=== PATIENT | female | born 1975 | race Caucasian/White ===

== ENCOUNTER 2017-01-01 10:51 | Emergency (ER) | payer MEDICAID ==
[2017-01-01] MEDS ORDERED: NORMAL SALINE 1000 ML 1,000 ML IV PRN ×2 (11:04→12:21)
[2017-01-01] MEDS ORDERED: ACETAMINOPHEN 325 MG TABLET PO ONE ×2 (11:07→14:32)
[2017-01-01] MEDS ORDERED: ONDANSETRON HCL INJ/PF 4 MG/2 ML SDV IV ONE (11:16)
[2017-01-01] MEDS ORDERED: KETOROLAC TROMETHAMINE INJ/PF 30 MG/1 ML SDV IV ONE (11:17)
--- NOTE | 2017-01-01 11:19 | ER Document Report ---
ED General - General Chief Complaint: Nausea/Vomiting Stated Complaint: NAUSEA,VOMITING,LOW BACK PAIN Mode of Arrival: Ambulatory Information source: Patient Notes: 41-year-old female presents with complaints of left flank pain and fever bodyaches nausea vomiting. Patient notes symptoms initially started 5 days ago with UTI symptoms burning on urination patient took Azo with no improvement of any symptoms. Notes she became febrile today TRAVEL OUTSIDE OF THE [place] IN LAST 30 DAYS: No - HPI Onset: Last week Onset/Duration: Persistent Quality of pain: Achy Severity: Mild Pain Level: 1 Associated symptoms: Fever, Nausea, Vomiting Exacerbated by: Other - Urination Relieved by: Denies Similar symptoms previously: No Recently seen / treated by doctor: No - Related Data Allergies/Adverse Reactions: No Known Allergies Allergy (Verified 01/01/17 12:05) Past Medical History - Social History Smoking Status: Current Every Day Smoker Cigarette use (# per day): Yes Chew tobacco use (# tins/day): No Smoking Education Provided: No Family History: Reviewed & Not Pertinent Patient has suicidal ideation: No Patient has homicidal ideation: No Renal/ Medical History: Denies: Hx Peritoneal Dialysis Review of Systems - Review of Systems Notes: REVIEW OF SYSTEMS: CONSTITUTIONAL : Admits to fever EENT: Denies eye, ear, throat, or mouth pain or symptoms. Denies nasal or sinus congestion or discharge. Denies throat, tongue, or mouth swelling or difficulty swallowing. CARDIOVASCULAR: Denies chest pain. Denies palpitations or racing or irregular heart beat. Denies ankle edema. RESPIRATORY: Denies cough, cold, or chest congestion. Denies shortness of breath, difficulty breathing, or wheezing. GASTROINTESTINAL: Admits to left flank pain admits to nausea vomiting GENITOURINARY: Admits to burning on urination FEMALE GENITOURINARY: Denies vaginal bleeding, heavy or abnormal periods, irregular periods. Denies vaginal discharge or odor. MUSCULOSKELETAL: Denies back or neck pain or stiffness. Denies joint pain or swelling. SKIN: Denies rash, lesions or sores. HEMATOLOGIC : Denies easy bruising or bleeding. LYMPHATIC: Denies swollen, enlarged glands. NEUROLOGICAL: Denies confusion or altered mental status. Denies passing out or loss of consciousness. Denies dizziness or lightheadedness. Denies headache. Denies weakness or paralysis or loss of use of either side. Denies problems with gait or speech. Denies sensory loss, numbness, or tingling. Denies seizures. PSYCHIATRIC: Denies anxiety or stress. Denies depression, suicidal ideation, or homicidal ideation. ALL OTHER SYSTEMS REVIEWED AND NEGATIVE. Dictation was performed using [employer] voice recognition software PHYSICAL EXAMINATION: GENERAL: Febrile HEAD: Atraumatic, normocephalic. EYES: Pupils equal round and reactive to light, extraocular movements intact, conjunctiva are normal. ENT: Nares patent, oropharynx clear without exudates. Moist mucous membranes. NECK: Normal range of motion, supple without lymphadenopathy LUNGS: Breath sounds clear to auscultation bilaterally and equal. No wheezes rales or rhonchi. HEART: Tachycardic ABDOMEN: Soft, nontender, nondistended abdomen. No guarding, no rebound. No masses appreciated. Left CVA tenderness Female : deferred Musculoskeletal: Normal range of motion, no pitting or edema. No cyanosis. NEUROLOGICAL: Cranial nerves grossly intact. Normal speech, normal gait. Normal sensory, motor exams PSYCH: Normal mood, normal affect. SKIN: Warm, Dry, normal turgor, no rashes or lesions noted. Physical Exam - Vital signs Vitals: Temp Pulse Resp BP Pulse Ox 101.1 F H 127 H 22 H 190/121 H 98 01/01/17 10:53 01/01/17 10:53 01/01/17 10:53 01/01/17 10:53 01/01/17 10:53 Course - Re-evaluation Re-evalutation: 01/01/17 11:18 Patient has probable pyelonephritis, lab work is pending at this time. Patient given antibiotics and fluids as well as Tylenol and pain control I was notified by family member that the patient does have opiod addiction history 01/01/17 11:19 01/01/17 13:38 Patient noted to have pyelonephritis, no kidney injury is noted 01/01/17 14:47 Patient's heart rate temperature is improved significantly, I will discharge patient home with primary care follow-up and very strict return precautions. Patient notes she has not seen a PCP in years and is noted to be hypertensive. Patient will be given follow-up for this as well Strict return precautions have been provided to the patient After performing a Medical Screening Examination, I estimate there is LOW risk for ACUTE CORONARY SYNDROME, RESPIRATORY FAILURE, SEPSIS OR MENINGITIS, thus I consider the discharge disposition reasonable. I have reevaluated this patient multiple times and no significant life threatening changes are noted. The patient and I have discussed the diagnosis and risks, and we agree with discharging home with close follow-up. We also discussed returning to the Emergency Department immediately if new or worsening symptoms occur. We have discussed the symptoms which are most concerning (e.g., changing or worsening pain, trouble swallowing or breathing, neck stiffness, fever) that necessitate immediate return. - Vital Signs Vital signs: Temp Pulse Resp BP Pulse Ox 101.1 F H 127 H 17 153/96 H 95 01/01/17 10:53 01/01/17 10:53 01/01/17 14:01 01/01/17 14:00 01/01/17 14:01 - Laboratory Result Diagrams: 01/01/17 11:14 01/01/17 12:30 Laboratory results interpreted by me: 01/01/17 01/01/17 01/01/17 11:14 11:27 11:58 WBC 26.6 H Lymphocytes % (Manual) 8 L Abs Neuts (Manual) 21.3 H Abs Monocytes (Manual) 3.2 H VBG pH 7.43 H Potassium Glucose Urine Protein 100 H Urine Ketones 80 H Urine Blood LARGE H Ur Leukocyte Esterase SMALL H Urine Ascorbic Acid 20 H 01/01/17 12:30 WBC Lymphocytes % (Manual) Abs Neuts (Manual) Abs Monocytes (Manual) VBG pH Potassium 3.4 L Glucose 115 H Urine Protein Urine Ketones Urine Blood Ur Leukocyte Esterase Urine Ascorbic Acid Discharge - Discharge Clinical Impression: Pyelonephritis, Dehydration Sepsis Qualifiers: Sepsis type: sepsis due to unspecified organism Qualified Code(s): A41.9 - Sepsis, unspecified organism Condition: Stable Disposition: HOME, SELF-CARE Instructions: Pyelonephritis ([facility]) Prescriptions: Ciprofloxacin HCl [Cipro 500 mg Tablet] 500 mg PO BID #20 tablet Ondansetron [Zofran Odt] 8 mg PO Q6 #14 tab.rapdis Referrals: GARETT MORA MD [Primary Care Provider] - Follow up as needed ROB GRIMALDO MD [NO LOCAL MD] - Follow up tomorrow
[2017-01-01 11:41] LABS: PROTHROMBIN TIME 13.9 SEC (11.4-15.4)
[2017-01-01 11:46] LABS: HEMATOCRIT 46.1 % (36.0-47.0); HEMOGLOBIN 14.9 g/dL (12.0-15.5); HGB HCT DIFFERENCE -1.4; MEAN CORPUSCULAR HEMOGLOBIN 28.9 pg (27.0-33.4); MEAN CORPUSCULAR HGB CONC 32.3 g/dL (32.0-36.0); MEAN CORPUSCULAR VOLUME 90 fl (80-97); RED BLOOD COUNT 5.15 10^6/uL (3.72-5.28); RED CELL DISTRIBUTION WIDTH 13.9 % (11.5-14.0); WHITE BLOOD COUNT 26.6 10^3/uL (4.0-10.5)
[2017-01-01 12:01] LABS: APPEARANCE,URINE CLOUDY; BILIRUBIN,URINE NEGATIVE (NEGATIVE); GLUCOSE, URINE NEGATIVE (NEGATIVE); KETONES,URINE 80 mg/dL (NEGATIVE); LEUKOCYTE ESTERASE,URINE SMALL (NEGATIVE); NITRITE,URINE NEGATIVE (NEGATIVE); PROTEIN,URINE 100 mg/dL (NEGATIVE); URINE SPECIFIC GRAVITY 1.023; UROBILINOGEN,URINE NEGATIVE mg/dL (<2.0)
[2017-01-01 12:03] LABS: BAND NEUTROPHILS % (MANUAL) 3 % (3-5); BASOPHILS % (MANUAL) 0 % (0-2); EOSINOPHILS % (MANUAL) 0 % (0-6); LYMPHOCYTES % (MANUAL) 8 % (13-45); TOTAL CELLS COUNTED 100
[2017-01-01 12:04] LABS: PLATELET CLUMPS PRESENT; RBC MORPHOLOGY COMMENT NORMO-CYTIC/CHROMIC
[2017-01-01 12:17] LABS: VENOUS BLOOD BASE EXCESS 4.3 mmol/L; VENOUS BLOOD HCO3 29.4 mmol/L (20-32); VENOUS BLOOD PCO2 45.5 mmHg (35-63); VENOUS BLOOD PH 7.43 (7.30-7.42)
[2017-01-01 13:09] LABS: BLOOD UREA NITROGEN 11 mg/dL (7-20); CALCIUM 8.5 mg/dL (8.4-10.2); CARBON DIOXIDE 25 mmol/L (22-30); CHLORIDE 102 mmol/L (98-107); GLUCOSE 115 mg/dL (75-110); POTASSIUM 3.4 mmol/L (3.6-5.0); SODIUM 141.6 mmol/L (137-145)
[2017-01-01 13:10] LABS: ALANINE AMINOTRANSFERASE 29 U/L (9-52); ALBUMIN 3.5 g/dL (3.5-5.0); ALKALINE PHOSPHATASE 98 U/L (38-126); ANION GAP 15 (5-19); ASPARTATE AMINO TRANSFERASE 18 U/L (14-36); BILIRUBIN,DIRECT 0.2 mg/dL (0.0-0.4); BILIRUBIN,TOTAL 0.7 mg/dL (0.2-1.3); TOTAL PROTEIN 6.6 g/dL (6.3-8.2)
[2017-01-01] MEDS ORDERED: CEFTRIAXONE 1 GM/D5W RTU 50 ML IV ONE (13:30)
[2017-01-01 15:30] VITALS: BP 140/92
--- NOTE | 2017-01-01 17:54 | EKG REPORT ---
SEVERITY:- BORDERLINE ECG - SINUS TACHYCARDIA INFERIOR Q WAVES, PROBABLY NORMAL VARIATION : Confirmed by: Gary Engel MD 01-Jan-2017 17:53:38
== END 2017-01-01 15:30 | disposition home or self-care (01) ==
LOC: ER 10:51
DX: A41.9 Sepsis, unspecified organism (principal); N12 Tubulo-interstitial nephritis, not specified as acute or chronic; E86.0 Dehydration; I10 Essential (primary) hypertension; R11.2 Nausea with vomiting, unspecified; F17.210 Nicotine dependence, cigarettes, uncomplicated
CPT/HCPCS: 93005; 99284; 96361; 96375; 96365; 36415; 87040; 87086; 82962; 85025; 85610; 87088; 80053; 81001; 87186; 82803; 83605; 93010; J3490; J1885; J2405; J7030; J0696

== ENCOUNTER 2020-09-01 20:10 | Emergency (ER) | payer MEDICAID ==
--- NOTE | 2020-09-01 20:53 | ER Document Report ---
ED Medical Screen (RME) - General Chief Complaint: Headache Stated Complaint: COLD SYMPTOMS COUGH CONGESTION Time Seen by Provider: 09/01/20 20:49 Primary Care Provider: GARETT MORA MD [Primary Care Provider] - Follow up as needed Notes: HPI: 44-year-old morbidly obese female with history of hypertension that is untreated presenting with left facial droop and left-sided headache. Patient states that she developed a headache last night before going to bed. Patient woke up with left facial droop today. No weakness numbness or tingling in the arms or legs. No chest pain shortness of breath. She does report chronic swelling of her legs. PHYSICAL EXAMINATION: Left facial droop is noted. Sensory appears intact in the forehead cheek and jaw but there is facial droop noted. Patient is mildly tachycardic. Lung sounds are clear to auscultation. Strength equal 5/5 bilateral upper and lower extremities. Sensation intact and equal bilateral upper and lower extremities. I have greeted and performed a rapid initial assessment of this patient. A comprehensive ED assessment and evaluation of the patient, analysis of test results and completion of medical decision making process will be conducted by an additional ED providers. Please note that clinical decision making for this patient was made during the 2019 pandemic of novel coronavirus which caused a significant strain on the healthcare system including at this particular facility. Criteria for admission discharge and level of care decisions as well as treatment decisions have necessarily changed TRAVEL OUTSIDE OF THE [place] IN LAST 30 DAYS: No - Related Data Allergies/Adverse Reactions: No Known Allergies Allergy (Verified 09/01/20 20:38) Past Medical History - Social History Drug Abuse: None - Past Medical History Cardiac Medical History: Reports: Hx Hypertension Renal/ Medical History: Denies: Hx Peritoneal Dialysis - Immunizations Hx Diphtheria, Pertussis, Tetanus Vaccination: No Physical Exam - Vital signs Vitals: Temp Pulse Resp BP Pulse Ox 98.6 F 122 H 20 232/156 H 94 09/01/20 20:26 09/01/20 20:26 09/01/20 20:26 09/01/20 20:26 09/01/20 20:26 Course - Vital Signs Vital signs: Temp Pulse Resp BP Pulse Ox 98.6 F 122 H 20 232/156 H 94 09/01/20 20:26 09/01/20 20:26 09/01/20 20:26 09/01/20 20:26 09/01/20 20:26 Doctor's Discharge - Discharge Referrals: GARETT MORA MD [Primary Care Provider] - Follow up as needed
--- NOTE | 2020-09-01 21:25 | RADIOLOGY REPORT (SQ) ---
CLINICAL HISTORY: left facial droop COMPARISON: None. TECHNIQUE: CT HEAD WITHOUT IV CONTRAST on 09/01/2020 8:49 PM MEDICAL LABORATORY TECHNICAL OFFICER This exam was performed according to our departmental dose-optimization program, which includes automated exposure control, adjustment of the mA and/or kV according to patient size and/or use of iterative reconstruction technique. FINDINGS: There is no acute hemorrhage, mass effect or midline shift. Collins-white differentiation is preserved. There is no hydrocephalus. There is no significant volume loss for age. The calvarium is intact. Orbits and globes are unremarkable. The paranasal sinuses are clear. Mastoid air cells are clear. IMPRESSION: No acute intracranial findings.
--- NOTE | 2020-09-01 21:26 | RADIOLOGY REPORT (SQ) ---
CLINICAL HISTORY: facial droop COMPARISON: None. TECHNIQUE: XR CHEST 1 VIEW 09/01/2020 8:49 PM FIELD MARKETING SPECIALIST FINDINGS: Cardiac silhouette is normal in size. Lungs are clear without consolidation, atelectasis, mass or edema. There is no pleural effusion. There is no pneumothorax. There are no acute osseous findings. IMPRESSION: Clear lungs.
[2020-09-01 21:30] LABS: ABSOLUTE BASOPHILS # (AUTO) 0.1 10^3/uL (0.0-0.2); ABSOLUTE EOSINOPHILS # (AUTO) 0.6 10^3/uL (0.0-0.6); ABSOLUTE LYMPHOCYTES (AUTO) 1.7 10^3/uL (0.5-4.7); HEMATOCRIT 44.5 % (36.0-47.0); HEMOGLOBIN 15.6 g/dL (12.0-15.5); LYMPHOCYTES % (AUTO) 15.1 % (13-45); MEAN CORPUSCULAR HEMOGLOBIN 34.9 pg (27.0-33.4); MEAN CORPUSCULAR HGB CONC 35.2 g/dL (32.0-36.0); MEAN CORPUSCULAR VOLUME 99 fl (80-97); MONOCYTES % (AUTO) 8.5 % (3-13); PLATELET COUNT 275 10^3/uL (150-450); RED BLOOD COUNT 4.48 10^6/uL (3.72-5.28); RED CELL DISTRIBUTION WIDTH 13.6 % (11.5-14.0); SEGMENTED NEUTROPHILS % (AUTO) 70.4 % (42-78); TOTAL CELLS COUNTED % (AUTO) 100 %; WHITE BLOOD COUNT 11.4 10^3/uL (4.0-10.5)
[2020-09-01 21:35] LABS: INTERNATIONAL RATION (INR) 0.94; PROTHROMBIN TIME 12.8 SEC (11.4-15.4)
[2020-09-01 21:57] LABS: ALBUMIN 4.2 g/dL (3.5-5.0); ALKALINE PHOSPHATASE 114 U/L (38-126); ANION GAP 6 (5-19); ASPARTATE AMINO TRANSFERASE 26 U/L (14-36); BILIRUBIN,DIRECT 0.1 mg/dL (0.0-0.4); BILIRUBIN,TOTAL 0.5 mg/dL (0.2-1.3); BLOOD UREA NITROGEN 10 mg/dL (7-20); CALCIUM 9.7 mg/dL (8.4-10.2); CARBON DIOXIDE 34 mmol/L (22-30); CHLORIDE 100 mmol/L (98-107); GLUCOSE 105 mg/dL (75-110); POTASSIUM 4.1 mmol/L (3.6-5.0); TOTAL PROTEIN 7.9 g/dL (6.3-8.2)
--- NOTE | 2020-09-01 23:12 | ER Document Report ---
ED General - General Chief Complaint: Headache Stated Complaint: COLD SYMPTOMS COUGH CONGESTION Time Seen by Provider: 09/01/20 20:49 Primary Care Provider: GARETT MORA MD [Primary Care Provider] - Follow up as needed TRAVEL OUTSIDE OF THE [place] IN LAST 30 DAYS: No - HPI Notes: 44-year-old female presents with headache and facial droop. Patient states that she has a history of migraines, she developed a headache last night however it was in a different location than she usually experiences. This time it was behind her left ear. She states that she woke up this morning and attempted to drink from a straw and had difficulty doing so, she states that she then looked in the mirror and saw that the entire left side of her face look like it had slid down. 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 She denies numbness, weakness, speech difficulties, vision difficulties. Patient also notes that she has a history of high blood pressure, her blood pressure is typically in the 200s. She has been prescribed lisinopril however does not take it as she is unable to afford this medication. She also states that she has had dental pain ongoing for several months. She states that she is trying to see a dentist, however she is refuse care due to her blood pressure. She also feel like she recently has had a cold. - Related Data Allergies/Adverse Reactions: No Known Allergies Allergy (Verified 09/01/20 20:38) Past Medical History - General Information source: Patient - Social History Smoking Status: Current Every Day Smoker Drug Abuse: None Family History: Reviewed & Not Pertinent - Past Medical History Cardiac Medical History: Reports: Hx Hypertension Renal/ Medical History: Denies: Hx Peritoneal Dialysis - Immunizations Hx Diphtheria, Pertussis, Tetanus Vaccination: No Review of Systems - Review of Systems Constitutional: denies: Fever EENT: denies: Blurred vision Cardiovascular: denies: Chest pain Respiratory: denies: Short of breath Gastrointestinal: denies: Abdominal pain Genitourinary: No symptoms reported Female Genitourinary: No symptoms reported Musculoskeletal: denies: Joint pain Skin: No symptoms reported Hematologic/Lymphatic: No symptoms reported Neurological/Psychological: See HPI Physical Exam - Vital signs Vitals: Temp Pulse Resp BP Pulse Ox 98.6 F 122 H 20 232/156 H 94 09/01/20 20:26 09/01/20 20:26 09/01/20 20:26 09/01/20 20:26 09/01/20 20:26 - General General appearance: Appears well, Alert In distress: None - HEENT Head: Normocephalic, Atraumatic Eyes: Normal Extraocular movements intact: Yes Pupils: PERRL Tympanic membrane: Other - No erythema or vesicles to left ear canal Mucous membranes: Moist Neck: Supple - Respiratory Breath sounds: Normal - Cardiovascular Rhythm: Regular Heart sounds: Normal auscultation - Abdominal Inspection: Obese Tenderness: Nontender - Extremities General upper extremity: Normal ROM General lower extremity: Normal ROM. No: Edema - Neurological Cognition: Normal Orientation: AAOx4 Cranial nerves: Facial palsy Cerebellar coordination: Normal Motor strength normal: LUE, RUE, LLE, RLE Additional motor exam normals: Equal cut off tender glass Sensory: Normal Notes: Patient has left facial paralysis involving the whole face. She has flattening of the left sided forehead wrinkles. She is unable to raise the left eyebrow. She is able to close the left eyelid however cannot keep close against resistance. There is drooping of the left side of the mouth with flattening of the nasolabial fold. Tongue protrudes midline. EOMI. Sensation intact bilaterally to face. - Psychological Associated symptoms: Normal affect - Skin Skin Temperature: Warm Course - Re-evaluation Re-evalutation: 44-year-old female history of undertreated hypertension here with left-sided facial droop, nurse at this morning when she woke up between 530 and 6 AM. On exam she does exhibit facial paralysis of the entire left side including the forehead. She has no other gross focal neuro deficits. I do not see any vesicles inside the ear canal. Given the severity of her defects, will start treatment with prednisone and Valtrex. Discussed with her that this is clinically a Mckinney's palsy and discussed expected management, including proper eye care. She had a head CT done through triage which was negative for acute process. I did inspect the inside of her mouth, I do not see any appreciable dental abscess, however I will prescribe a course of penicillin. She is hypertensive which she reports is at her baseline pressure, she is relatively as ymptomatic with this. Discussed with her that I will send lisinopril to [facility] as it is a free medication there. 09/02/20 01:16 Patient states she is feeling better and would like to go home at this time. Discussed with her we will send new prescription for lisinopril for her blood pressure. Had intended to send to [facility], however patient states she found out that she actually has Medicaid so now wants it sent to [facility]. Given her complaints of dental infection, will also send prescription for Pen VK. Also sent prednisone and Valtrex. Return precautions given, stable at time of disch arge. - Vital Signs Vital signs: Temp Pulse Resp BP Pulse Ox 98.6 F 122 H 20 218/131 H 96 09/01/20 20:26 09/01/20 20:26 09/01/20 23:30 09/02/20 01:01 09/02/20 01:02 - Laboratory Results Result Diagrams: 09/01/20 21:14 09/01/20 21:14 Laboratory Results Interpreted: 09/01/20 09/01/20 21:14 21:14 WBC 11.4 H Hgb 15.6 H MCV 99 H MCH 34.9 H Carbon Dioxide 34 H Critical Laboratory Results Reviewed: No Critical Results - Radiology Results Critical Radiology Results Reviewed: No Critical Results - EKG Interpretation by Me Additional EKG results interpreted by me: EKG is interpreted by me. Sinus tachycardia, rate 116. Narrow QRS, QTC within normal limits. No ST segment elevation. Nonspecific T wave changes. Discharge - Discharge Clinical Impression: Mckinney's palsy, Asymptomatic hypertension Disposition: HOME, SELF-CARE Additional Instructions: Please take the prednisone taper for 10 days, 60 mg days 1 through 5, then decrease 1 less tablet per day. Use concurrently with Valtrex, 1000 mg 3 times a day. Please start daily use of lisinopril. Use the penicillin for dental infection. Please establish primary care doctor. Return to the emergency department for any concerning worsening symptoms. Prescriptions: Penicillin V Potassium [Penicillin Vk 500 mg Tablet] 500 mg PO BID 7 Days #14 tablet Prednisone 10 mg PO ASDIR PRN 10 Days #45 tablet PRN Reason: Lisinopril [Prinivil 10 mg Tablet] 10 mg PO DAILY #30 tablet Valacyclovir HCl [Valtrex] 1,000 mg PO TID 7 Days tablet Referrals: GARETT MORA MD [Primary Care Provider] - Follow up as needed
[2020-09-01] MEDS ORDERED: PROCHLORPERAZINE EDISYLATE INJ 10 MG/2 ML VIAL IV ONE (23:26)
[2020-09-01] MEDS ORDERED: PREDNISONE 20 MG TABLET PO ONE (23:26)
[2020-09-01] MEDS ORDERED: DIPHENHYDRAMINE HCL 50 MG/ML VIAL IV ONE (23:26)
[2020-09-01] MEDS ORDERED: VALACYCLOVIR HCL 500 MG TABLET PO ONE (23:29)
[2020-09-02] MEDS ORDERED: PROCHLORPERAZINE EDISYLATE INJ 10 MG/2 ML VIAL ONE (00:08)
[2020-09-02 01:19] VITALS: BP 218/131
--- NOTE | 2020-09-02 02:02 | EKG REPORT ---
SEVERITY:- ABNORMAL ECG - SINUS TACHYCARDIA NONSPECIFIC T ABNORMALITIES, LATERAL LEADS : Confirmed by: Rebecca Lam MD 02-Sep-2020 02:02:11
== END 2020-09-02 01:36 | disposition home or self-care (01) ==
LOC: ER 20:10
DX: G51.0 Bell's palsy (principal); I10 Essential (primary) hypertension; T46.4X6A Underdosing of angiotensin-converting-enzyme inhibitors, initial encounter; Z91.120 Patient's intentional underdosing of medication regimen due to financial hardship; Z91.14 Patient's other noncompliance with medication regimen; K08.89 Other specified disorders of teeth and supporting structures; F17.200 Nicotine dependence, unspecified, uncomplicated; Z86.69 Personal history of other diseases of the nervous system and sense organs
CPT/HCPCS: 93005; 99285; 96374; 96375; 36415; 85025; 85610; 80053; 84484; 71045; 70450; 93010; J1200; J7512; J0780; J3490